=== PATIENT | female | born 1940 | race Caucasian/White ===

== ENCOUNTER 2019-07-13 12:51 | Day surgery (SDC) | payer MEDICARE ==
[~2019-07-13] VITALS: Ht 160 cm; Wt 62.6 kg
--- NOTE | ~2019-07-13 | OR ---
[facility] [address], [place] [address] Draft DATE OF OPERATION: 07/13/2019 SURGEON: Lisandro Ribeiro MD PREOPERATIVE DIAGNOSES: History of hyperplastic polyps in 2013, known diverticulosis. POSTOPERATIVE DIAGNOSIS: Diverticulosis of sigmoid. PROCEDURE PERFORMED: Total colonoscopy to cecum. ANESTHESIA: Intravenous sedation, fentanyl 100 mcg, Versed 2 mg. INDICATION: This 79-year-old white woman is a patient of Dr. Octavio Velez, of [place], [place]. She is referred for surveillance colonoscopy. She underwent colonoscopy in 2012, at which time she was found to have a hyperplastic polyp. She had episodic rectal bleeding for the past three months. No bleeding or diarrhea now. She is known to have hemorrhoidal changes in the past. She has had five colonoscopies in the past and polyp removal in the past in addition to hyperplastic polyp removed in 2013. She has no family history of colon cancer that she is aware of. She is admitted at this time to undergo colonoscopy. She understands the risk of bleeding, infection, and perforation. FINDINGS: The prep was excellent. Complete colonoscopy was undertaken to the cecum without question. She had no evidence of polyps. She had only diverticulosis. DESCRIPTION OF PROCEDURE: The patient was brought to the endoscopy suite and placed in lateral decubitus position, given intravenous sedation to the point of slurred speech and nystagmus. Digital rectal examination was found to be normal. An Olympus video colonoscope was passed in the rectum and manipulated throughout the colon without problem ultimately intubating the cecum itself. The ileocecal valve and appendiceal orifice were normal. Scope was withdrawn from that point. Examination throughout showed no sign of polyps, but did show numerous diverticula in the left colon and sigmoid as before. Retroflexed view of the rectum was normal. Scope was removed and the patient was taken to recovery room in good condition. PATIENT NAME: JONAS CHOI OPERATIVE REPORT DATE OF : 36 REPORT #: [id number] PHYSICIAN: LISANDRO RIBEIRO MD PCP: OCTAVIO VELEZ MD REPORT IS CONFIDENTIAL AND NOT TO BE RELEASED WITHOUT AUTHORIZATION [facility] [address], [place] [address] Draft CONCLUSION DIAGNOSIS: Multiple diverticula. No polyps. PLAN: Recommend repeat colonoscopy if symptoms or problems should occur given her advanced age. If desired, colonoscopy could be performed in 10 years based on current guidelines. Lisandro Ribeiro MD JM/MODL /[id number] cc: Octavio Velez MD Copies: OCTAVIO VELEZ MD ~ PATIENT NAME: INSKO,JONAS GERINE OPERATIVE REPORT DATE OF : 36 REPORT #: [id number] PHYSICIAN: LISANDRO RIBEIRO MD PCP: OCTAVIO VELEZ MD REPORT IS CONFIDENTIAL AND NOT TO BE RELEASED WITHOUT AUTHORIZATION
[~2019-07-13 12:51] MED LIST: CALCIUM + VITA1 EACH PO; COZAAR25 MG PO; LISINOPRIL5 MG PO; MAGNESIUM400 MG PO; MULTIVITAMINS1 EAC7 PO; OMEGA 3 1,0001 EACH PO
--- NOTE | 2019-07-13 14:12 | NUR ---
07/13/19 1412 JESENIA HOSKINS PATIENT ARRIVED FROM ENDO ROOM AT 1358. PATIENT AWAKE AND CONVERSING. PROVIDER SPOKE WITH PATIENT AT 1400. PATIENT HAD QUESTIONS ABOUT DIVERTICULITIS. PATIENT WAS INFORMED WITH SOME INFORMATION AND INSTRUCTED SHE WOULD RECIEVE A PACKET. PATIENT IS ON ROOM AIR WITH 02 SAT AT 96%. PATIENT RESTING COMFORTABLY AND PASSING GAS. PATIENT HAS NO OTHER QUESTIONS OR CONCERNS AT THIS TIME.
== END 2019-07-13 14:46 | disposition home or self-care (01) ==
LOC: OPS 12:51 → DS 12:55 → OPS 14:00 → DS 14:00 → OPS 14:46
PROVIDERS: Surgery
PROC: 0DJD8ZZ Inspection of Lower Intestinal Tract, Via Natural or Artificial Opening Endoscopic (ICD-10-PCS; principal; 2019-07-13 14:00)
DX: Z12.11 Encounter for screening for malignant neoplasm of colon (principal); K57.30 Diverticulosis of large intestine without perforation or abscess without bleeding; I10 Essential (primary) hypertension; Z86.010 Personal history of colon polyps; Z90.49 Acquired absence of other specified parts of digestive tract; Z98.890 Other specified postprocedural states
CPT/HCPCS: 99153; G0500; J2250; J3010

== ENCOUNTER 2021-10-31 13:03 | Emergency (ER) | payer MEDICARE ==
[~2021-10-31] VITALS: Ht 160 cm; Wt 62.6 kg
[2021-10-31] MEDS ORDERED: NAPROXEN500 MG PO (14:45)
== END 2021-10-31 17:58 | disposition home or self-care (01) ==
LOC: ED 13:03
DX: R51.9 Headache, unspecified (principal); I10 Essential (primary) hypertension; M19.90 Unspecified osteoarthritis, unspecified site; Z79.899 Other long term (current) drug therapy
CPT/HCPCS: 70450; 80048; 85025; 86140; 99284-25

== ENCOUNTER 2025-04-12 15:52 | Emergency (ER) | payer MEDICARE, OTHER ==
[~2025-04-12] VITALS: Ht 160 cm; Wt 59.4 kg
[~2025-04-12 15:52] MED LIST changes: +CELEBREX100 MG PO; +NAPROXEN500 MG PO; +SUPER B WITH V1 EACH PO
[2025-04-12] MEDS ORDERED: LOSARTAN POTAS100 MG PO (16:06)
[2025-04-12 16:14] LABS: BASOPHILS 0.3 % (0.1-1.2); EOSINOPHILS 1.4 % (0.7-5.8); LYMPHOCYTES 27.1 % (19.3-51.7); MCH 33.2 PG (25.6-32.2); MCHC 34.4 g/dL (32.2-35.5); MCV 96.3 fL (79.4-94.8); MONOCYTES 7.2 % (4.7-12.5); NEUTROPHILS 63.8 % (34.0-71.1); RBC 3.80 M/uL (3.93-5.22)
[2025-04-12 16:36] LABS: ALT (SGPT) 25.0 U/L (14-59); AST (SGOT) 19.0 U/L (15-37); GLOMERULAR FILTRATION RATE,EST 92.0 mL/min (>60); PROTEIN, TOTAL 7.4 g/dL (6.4-8.2); UREA NITROGEN 15.0 mg/dL (7-18)
[2025-04-12] MEDS ORDERED: CEFTRIAXONE SOD 250 MG VIAL IV ONE (17:30)
[2025-04-12] MEDS ORDERED: SODIUM CHLORIDE 0.9% 1,000 ML IV PRN (17:30)
[2025-04-12 19:48] VITALS: BP 126/58
--- NOTE | 2025-04-12 22:12 | EKG ---
[facility] [address] [facility] [place] [address] Signed Normal sinus rhythm Normal ECG No previous ECGs available Confirmed by Tegan Ayala MD () on 04/12/2025 10:12:17 PM Electronically Signed By: TEGAN AYALA MD 04/12/252211 PATIENT NAME: JONAS CHOI Electrocardiogram DATE OF : 36 PHYSICIAN: TEGAN AYALA MD REPORT #: [id number] REPORT IS CONFIDENTIAL AND NOT TO BE RELEASED WITHOUT AUTHORIZATION
== END 2025-04-12 19:49 | disposition home or self-care (01) ==
LOC: ED 15:52
PROVIDERS: Emergency Medicine
DX: T67.5XXA Heat exhaustion, unspecified, initial encounter (principal); I10 Essential (primary) hypertension; M19.90 Unspecified osteoarthritis, unspecified site; Z79.899 Other long term (current) drug therapy; X30.XXXA Exposure to excessive natural heat, initial encounter; Y93.H2 Activity, gardening and landscaping
CPT/HCPCS: 36415; 70450; 80053; 83735; 84484; 85025; 93005; 93010; 96374; 99284-25; J2405; J7030